=== PATIENT | male | born 1985 | race Two or more races ===

== ENCOUNTER 2018-08-10 01:24 | Emergency (ER) | payer MEDICAID ==
[2018-08-10 01:36] VITALS: TEMP 97.5
[2018-08-10] MEDS ORDERED: LORAZEPAM 0.5 MG TAB PO ONE (02:06)
[2018-08-10] MEDS ORDERED: ALUMINUM/MAGNESIUM 30 ML SUS PO ONE (02:08)
[2018-08-10] MEDS ORDERED: LORAZEPAM 0.5 MG TAB ONE (02:09)
[2018-08-10] MEDS ORDERED: LIDOCAINE HCL 2% (VISCOUS) 15 ML SOL MT ONE (02:12)
[2018-08-10] MEDS ORDERED: ALUMINUM/MAGNESIUM 30 ML SUS ONE (02:13)
[2018-08-10] MEDS ORDERED: LIDOCAINE HCL 2% (VISCOUS) 15 ML SOL ONE (02:13)
[2018-08-10 02:27] LABS: BASOPHILS % (AUTO) 2 % (0-3); EOSINOPHILS % (AUTO) 5 % (0-9); HEMATOCRIT 40 % (39-53); HEMOGLOBIN 13.5 gm/dl (13.5-17.7); LYMPHOCYTES % (AUTO) 35.8 % (10-50); MEAN CORPUSCULAR HEMOGLOBIN 29.2 pg (27.0-32.0); MEAN CORPUSCULAR VOLUME 86 fL (80-100); MONOCYTES % (AUTO) 6.8 % (0-12); NEUTROPHILS % (AUTO) 50.8 % (37-80)
[2018-08-10 02:43] LABS: ALBUMIN 3.8 gm/dl (3.4-5.0); ALKALINE PHOSPHATASE 76 IU/L (46-116); ALT 65 IU/L (14-63); AST 39 IU/L (15-37); BILIRUBIN,TOTAL 0.8 mg/dl (0.2-1.0); BLOOD UREA NITROGEN 12 mg/dl (7-18); CALCIUM 8.6 mg/dl (8.5-10.1); CARBON DIOXIDE 29.3 mEq/L (21-32); CHLORIDE 101 mMol/L (98-107); CREATININE 0.81 mg/dl (0.80-1.30); GLUCOSE 148 mg/dl (74-106); POTASSIUM 3.6 mMol/L (3.5-5.1); SODIUM 138 mMol/L (136-145); TOTAL PROTEIN 7.7 gm/dl (6.4-8.2); TROP I < 0.017 ng/ml (0.000-0.056)
[2018-08-10 03:55] VITALS: BP 152/88; PULSE 94; RESP 15; O2SAT 98
== END 2018-08-10 03:48 | disposition home or self-care (01) | DRG 310 ==
LOC: ED 01:24
DX: R00.2 Palpitations (principal); F41.0 Panic disorder [episodic paroxysmal anxiety]; E11.9 Type 2 diabetes mellitus without complications
CPT/HCPCS: 80053; 84484; 85025; 85378; 93005; 99284; A9270-GY